=== PATIENT | male | born 1945 | race Caucasian/White ===

== ENCOUNTER 2018-04-26 07:49 | Outpatient (CLI) | payer OTHER ==
[~2018-04-26 07:49] MED LIST: ASA81 MG PO; ATORVASTATIN PO; CEFADROXIL500 MG PO; LATANOPROST2.5 ML OP; NABUMETONE750 MG PO; PERCOCET 5/321 UDTAB PO; SYNT PO; VASOTEC10 MG NGT; XARELTO10 MG PO; ZOCOR40 MG PO
== END 2018-04-26 10:06 | disposition home or self-care (01) ==
LOC: MRI 07:49
DX: M25.562 Pain in left knee (principal); M19.012 Primary osteoarthritis, left shoulder; M75.32 Calcific tendinitis of left shoulder
CPT/HCPCS: 73218

== ENCOUNTER 2019-12-12 09:01 | Outpatient (CLI) | payer OTHER | END 2019-12-12 10:00 | disposition home or self-care (01) | LOC: MRI 09:01 | DX: C61 Malignant neoplasm of prostate (principal) | CPT/HCPCS: 72197; A9575 ==